=== PATIENT | female | born 1945 ===

== ENCOUNTER 2023-07-01 08:47 | Outpatient (REF) | payer MEDICARE, OTHER, SELFPAY ==
--- NOTE | 2023-07-01 11:22 | MHC.AU.HA3 ---
Hearing Instrument Follow-Up- Binaural Date of Visit: 07/01/23 Right Ear: Make, Model, Color, Serial Number: Oticon Gloria 2 Pro MiniRite, [id number], chroma beige Nail Technician Teacher Repair Warranty: Nail Technician Teacher Loss and Damage Warranty: [facility] Service Plan: Battery Size: 312 Hospitality Services Manager/Slim Tube: 2/60 Earmold/Dome/CShell/SlimTip:8mm dbl khan Type of Wax Guard: minifit prowax Dispensed By: Dr. Gordon Date of Fittin Left Ear: Make, Model, Color, Serial Number: Oticon Gloria 2 Pro [employer]Rite, [id number], chroma beige Nail Technician Teacher Repair Warranty: Nail Technician Teacher Loss and Damage Warranty: [facility] Service Plan: Battery Size: 312 Hospitality Services Manager/Slim Tube: 2/60 Earmold/Dome/CShell/SlimTip: 6mm dbl khan Type of Wax Guard: Dispensed By: Dr. Gordon Date of Fittin Follow-Up Summary: Here for evaluation. Brought her aids from Dr. Gordon's 2017. Reports the right aid has been broken for a long time. Reports Dr. Gordon[facility] closed and [facility] told her the aid was too old to repair. Cleaned and checked aids, listening check positive for both after cleaning. Set aids to new audio, DSL, adaptation 3. Swapped to double khan domes from open domes. Good satisfaction reported. Discussed age of ages and recommended considering new technology. Recommendations: Recommendations: Hearing instrument follow-up or maintenance as needed. 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
== END 2023-07-01 08:48 | disposition home or self-care (01) ==
LOC: HO.SH 08:47
PROVIDERS: Visit Provider Registered Nurse
DX: Z01.118 Encounter for examination of ears and hearing with other abnormal findings (principal); H90.A21 Sensorineural hearing loss, unilateral, right ear, with restricted hearing on the contralateral side; H90.A32 Mixed conductive and sensorineural hearing loss, unilateral, left ear with restricted hearing on the contralateral side
CPT/HCPCS: 92557; 92567

== ENCOUNTER 2023-07-01 10:03 | Outpatient (REF) | payer SELFPAY | END 2023-07-01 10:04 | disposition home or self-care (01) | LOC: HO.HAP 10:03 | PROVIDERS: Visit Provider Pediatrics | DX: Z46.1 Encounter for fitting and adjustment of hearing aid (principal); H90.A21 Sensorineural hearing loss, unilateral, right ear, with restricted hearing on the contralateral side; H90.A32 Mixed conductive and sensorineural hearing loss, unilateral, left ear with restricted hearing on the contralateral side | CPT/HCPCS: 92593 ==